=== PATIENT | female | born 1965 | race Caucasian/White ===

== ENCOUNTER → 2023-08-27 15:49 | Outpatient (REF) | payer OTHER, SELFPAY | LOC: WDC 15:49 | PROVIDERS: ATTENDING PHYSICIAN Obstetrics & Gynecology; FAMILY PHYSICIAN Family Medicine | DX: Z12.31 Encounter for screening mammogram for malignant neoplasm of breast (principal) | CPT/HCPCS: 77063; 77067 ==

== ENCOUNTER → 2023-11-01 16:45 | Outpatient (REF) | payer SELFPAY | LOC: RAD 16:45 | PROVIDERS: ATTENDING PHYSICIAN Family Medicine | DX: E78.00 Pure hypercholesterolemia, unspecified (principal); Z82.49 Family history of ischemic heart disease and other diseases of the circulatory system | CPT/HCPCS: 75571 ==

== ENCOUNTER → 2024-06-30 07:14 | Outpatient (REF) | payer OTHER, SELFPAY | LOC: RAD 07:14 | PROVIDERS: ATTENDING PHYSICIAN Family Medicine | DX: K76.89 Other specified diseases of liver (principal) | CPT/HCPCS: 76700 ==

== ENCOUNTER → 2024-09-02 17:50 | Outpatient (REF) | payer BC, SELFPAY | LOC: WDC 17:50 | PROVIDERS: ATTENDING PHYSICIAN Obstetrics & Gynecology; FAMILY PHYSICIAN Family Medicine | DX: Z12.31 Encounter for screening mammogram for malignant neoplasm of breast (principal) | CPT/HCPCS: 77063; 77067 ==

== ENCOUNTER 2024-10-13 06:26 | Day surgery (SDC) | payer BC, SELFPAY | END 2024-10-13 08:40 | disposition home or self-care (01) | LOC: GI 06:26 | PROVIDERS: ATTENDING PHYSICIAN Internal Medicine Gastroenterology | DX: Z12.11 Encounter for screening for malignant neoplasm of colon (principal); K64.9 Unspecified hemorrhoids; K57.30 Diverticulosis of large intestine without perforation or abscess without bleeding; D12.0 Benign neoplasm of cecum | CPT/HCPCS: 45385; 88305 ==

== ENCOUNTER → 2024-10-14 12:38 | Outpatient (REF) | payer BC, SELFPAY | LOC: RAD 12:38 | PROVIDERS: ATTENDING PHYSICIAN Internal Medicine Endocrinology, Diabetes & Metabolism; FAMILY PHYSICIAN Family Medicine | DX: E06.3 Autoimmune thyroiditis (principal) | CPT/HCPCS: 76536 ==

== ENCOUNTER → 2025-03-02 08:53 | Outpatient (REF) | payer BC, SELFPAY | LOC: RAD 08:53 | PROVIDERS: ATTENDING PHYSICIAN Physician Assistant; FAMILY PHYSICIAN Family Medicine | DX: M25.569 Pain in unspecified knee (principal) | CPT/HCPCS: 73560; 73565 ==